=== PATIENT | female | born 1975 | race Caucasian/White ===

== ENCOUNTER 2018-03-21 23:48 | Observation (INO) | payer BC ==
[2018-03-22] MEDS ORDERED: KETOROLAC 60 MG/2 ML VIAL IM STA (00:42)
[2018-03-22] MEDS ORDERED: ONDANSETRON ODT 4 MG TAB PO STA (00:42)
[2018-03-22] MEDS ORDERED: MORPHINE SULFATE 4 MG/ML SYRINGE IM STA (00:42)
--- NOTE | 2018-03-22 00:46 | ED ---
General Adult HPI - General Chief complaint: Extremity Injury, Lower Stated complaint: leg pain Time Seen by Provider: 03/22/18 00:25 Source: patient, RN notes reviewed Mode of arrival: wheelchair Limitations: no limitations - History of Present Illness Initial comments: This is a 43-year-old female presents emergency Department complaining of left knee pain. Patient states started hurting on Thursday it became swollen on Thursday she went to the emergency department in [place]. Patient states they did x-rays and said she has an effusion and she is to follow-up with [facility] tomorrow morning. Patient states the pain got worse so she decided come back to emergency department. Patient states she cannot take any [place] because of his hydrocodone. Patient states she only takes Motrin and Tylenol but is not touching it. - Related Data Home Medications Medication Instructions Recorded Confirmed Multivitamins, Thera [Theragran] 1 tab PO DAILY 09/28/15 09/03/17 Vitamin C/Biotin [Hair, Skin and 1 tab PO DAILY 09/03/17 09/03/17 Nails] Previous Rx's Medication Instructions Recorded Acetaminophen-Codeine 300-30mg 1 tab PO Q6H PRN #15 tablet 09/04/17 [Tylenol #3] Allergies Allergy/AdvReac Type Severity Reaction Status Date / Time hydrocodone bitartrate AdvReac Nausea & Verified 03/22/18 00:30 [From Lortab] Vomiting Review of Systems ROS Statement: Those systems with pertinent positive or pertinent negative responses have been documented in the HPI. ROS Other: All systems not noted in ROS Statement are negative. Past Medical History Past Medical History: Hearing Disorder / Deafness, Hypertension Additional Past Medical History / Comment(s): wears hearing aide. History of Any Multi-Drug Resistant Organisms: None Reported Past Surgical History: Appendectomy, Bariatric Surgery, Cholecystectomy, Orthopedic Surgery Additional Past Surgical History / Comment(s): LAP BAND removed now RYGB on 08/2015, D&C Past Anesthesia/Blood Transfusion Reactions: No Reported Reaction Past Psychological History: No Psychological Hx Reported Smoking Status: Former smoker Past Alcohol Use History: None Reported Past Drug Use History: None Reported - Past Family History Mother Family Medical History: Diabetes Mellitus Additional Family Medical History / Comment(s): . General Exam - General Exam Comments Initial Comments: GENERAL Patient is well-developed and well-nourished. Patient is in mild distress. EYES Patient's pupils are equal and round. Extraocular motion is intact SKIN Unremarkable NEURO The patient is alert and oriented 3 PYSCH Patient has normal interpersonal interactions. MUSCULOSKELETAL Patient's knee has a super patellar effusion. Patient has no ligament laxity. Patient does have 75% range of motion with that knee before she starts having pain. Limitations: no limitations Course Vital Signs 03/22/18 03/22/18 00:28 03:26 Temperature 98.2 F Pulse Rate 87 91 Respiratory 18 16 Rate Blood Pressure 183/87 191/103 O2 Sat by Pulse 98 98 Oximetry Medical Decision Making - Medical Decision Making After the patient received morphine she stated her knee pain was much improved but she started getting hot and having some tightness across her chest. It did not subside so we did a cardiac workup. Patient's EKG showed normal sinus rhythm at 90 bpm VA interval is 134 QRS is 90 QT interval 360 QTC is 440. Patient's EKG shows no ST segment elevation or depression. Patient's chest x-ray shows no acute abnormality. Patient's hemoglobin came back low I repeated it and it was still low she states she's had no black or bloody stools patient denies any heavy vaginal bleeding. Patient denies a history of anemia but states she does have a gastric bypass. Patient states chest pains, knee pain is gone. I spoke with Dr. Rodriguez he agreed to admit the patient admitted the patient consult cardiology - Lab Data Result diagrams: 03/22/18 04:15 03/22/18 02:20 Lab Results 03/22/18 03/22/18 03/22/18 Range/Units 02:20 02:20 03:20 WBC 4.6 (3.8-10.6) k/uL RBC 4.29 (3.80-5.40) m/uL Hgb 7.8 L (11.4-16.0) gm/dL Hct 26.8 L (34.0-46.0) % MCV 62.6 L (80.0-100.0) fL MCH 18.1 L (25.0-35.0) pg MCHC 29.0 L (31.0-37.0) g/dL RDW 17.5 H (11.5-15.5) % Plt Count 187 (150-450) k/uL Neutrophils % 64 % Lymphocytes % 28 % Monocytes % 5 % Eosinophils % 2 % Basophils % 0 % Neutrophils # 2.9 (1.3-7.7) k/uL Lymphocytes # 1.3 (1.0-4.8) k/uL Monocytes # 0.2 (0-1.0) k/uL Eosinophils # 0.1 (0-0.7) k/uL Basophils # 0.0 (0-0.2) k/uL Hypochromasia Marked Poikilocytosis Slight Anisocytosis Slight Microcytosis Marked PT (9.0-12.0) sec INR (<1.2) APTT (22.0-30.0) sec Sodium 138 (137-145) mmol/L Potassium 4.3 (3.5-5.1) mmol/L Chloride 104 (98-107) mmol/L Carbon Dioxide 23 (22-30) mmol/L Anion Gap 11 mmol/L BUN 9 (7-17) mg/dL Creatinine 0.40 L (0.52-1.04) mg/dL Est GFR (CKD-EPI)AfAm >90 (>60 ml/min/1.73 sqM) Est GFR (CKD-EPI)NonAf >90 (>60 ml/min/1.73 sqM) Glucose 130 H (74-99) mg/dL Calcium 8.6 (8.4-10.2) mg/dL Magnesium 2.2 (1.6-2.3) mg/dL Total Bilirubin 0.3 (0.2-1.3) mg/dL AST 109 H (14-36) U/L ALT 46 (9-52) U/L Alkaline Phosphatase 114 (38-126) U/L Total Creatine Kinase 59 (30-135) U/L CK-MB (CK-2) 0.7 (0.0-2.4) ng/mL CK-MB (CK-2) Rel Index 1.2 Troponin I <0.012 (0.000-0.034) ng/mL Total Protein 6.3 (6.3-8.2) g/dL Albumin 3.4 L (3.5-5.0) g/dL 03/22/18 03/22/18 Range/Units 03:20 04:15 WBC 4.0 (3.8-10.6) k/uL RBC 3.77 L (3.80-5.40) m/uL Hgb 7.0 L* (11.4-16.0) gm/dL Hct 23.7 L (34.0-46.0) % MCV 62.9 L (80.0-100.0) fL MCH 18.6 L (25.0-35.0) pg MCHC 29.5 L (31.0-37.0) g/dL RDW 17.5 H (11.5-15.5) % Plt Count 164 (150-450) k/uL Neutrophils % % Lymphocytes % % Monocytes % % Eosinophils % % Basophils % % Neutrophils # (1.3-7.7) k/uL Lymphocytes # (1.0-4.8) k/uL Monocytes # (0-1.0) k/uL Eosinophils # (0-0.7) k/uL Basophils # (0-0.2) k/uL Hypochromasia Marked Poikilocytosis Slight Anisocytosis Slight Microcytosis Marked PT 9.5 (9.0-12.0) sec INR 1.0 (<1.2) APTT 21.5 L (22.0-30.0) sec Sodium (137-145) mmol/L Potassium (3.5-5.1) mmol/L Chloride (98-107) mmol/L Carbon Dioxide (22-30) mmol/L Anion Gap mmol/L BUN (7-17) mg/dL Creatinine (0.52-1.04) mg/dL Est GFR (CKD-EPI)AfAm (>60 ml/min/1.73 sqM) Est GFR (CKD-EPI)NonAf (>60 ml/min/1.73 sqM) Glucose (74-99) mg/dL Calcium (8.4-10.2) mg/dL Magnesium (1.6-2.3) mg/dL Total Bilirubin (0.2-1.3) mg/dL AST (14-36) U/L ALT (9-52) U/L Alkaline Phosphatase (38-126) U/L Total Creatine Kinase (30-135) U/L CK-MB (CK-2) (0.0-2.4) ng/mL CK-MB (CK-2) Rel Index Troponin I (0.000-0.034) ng/mL Total Protein (6.3-8.2) g/dL Albumin (3.5-5.0) g/dL Disposition Clinical Impression: Knee effusion, left Disposition: HOME SELF-CARE Condition: Good Instructions: Knee Sprain (ED) Is patient prescribed a controlled substance at d/c from ED?: No Referrals: Che Oliva DO [Primary Care Provider] - 1-2 days Time of Disposition: 00:45
[2018-03-22] MEDS ORDERED: NITROGLYCERIN SL TABS 0.4 MG TAB SUBLINGUAL STA (02:07)
[2018-03-22] MEDS ORDERED: ASPIRIN 81 MG PO STA (02:07)
[2018-03-22] MEDS ORDERED: NITROGLYCERIN OINT 1 INCH/GM PACKET TOPICAL STA (02:07)
[2018-03-22] MEDS ORDERED: LORazepam 2 MG/ML INJ IV STA (02:08)
--- NOTE | 2018-03-22 02:58 | XR ---
EXAMINATION TYPE: XR chest 2V DATE OF EXAM: 03/22/2018 COMPARISON: NONE HISTORY: Chest pain TECHNIQUE: Frontal and lateral views of the chest are obtained. FINDINGS: Heart and mediastinum are normal. Lungs are clear of infiltrate. There is no pleural effus ion. There are chest leads. Bony thorax is intact. IMPRESSION: Normal chest
[2018-03-22 03:09] LABS: ALT 46 U/L (9-52); AST 109 U/L (14-36); Albumin 3.4 g/dL (3.5-5.0); Alkaline Phosphatase 114 U/L (38-126); Anion Gap 11 mmol/L; Blood Urea Nitrogen 9 mg/dL (7-17); Calcium 8.6 mg/dL (8.4-10.2); Carbon Dioxide 23 mmol/L (22-30); Chloride 104 mmol/L (98-107); Glucose 130 mg/dL (74-99); Magnesium 2.2 mg/dL (1.6-2.3); Potassium 4.3 mmol/L (3.5-5.1); Sodium 138 mmol/L (137-145); Total Bilirubin 0.3 mg/dL (0.2-1.3); Total Protein 6.3 g/dL (6.3-8.2)
[2018-03-22 03:24] LABS: Creatine Kinase 59 U/L (30-135)
[2018-03-22 03:37] LABS: Creatine Kinase MB 0.7 ng/mL (0.0-2.4); Troponin I <0.012 ng/mL (0.000-0.034)
[2018-03-22 03:40] LABS: Anisocytosis Slight; Basophils % (A) 0 %; Eosinophils # (A) 0.1 k/uL (0-0.7); Eosinophils % (A) 2 %; HCT 26.8 % (34.0-46.0); HGB 7.8 gm/dL (11.4-16.0); Hypochromasia Marked; Lymphocytes # (A) 1.3 k/uL (1.0-4.8); Lymphocytes % (A) 28 %; MCH 18.1 pg (25.0-35.0); MCV 62.6 fL (80.0-100.0); Mean Platelet Volume 7.4; Microcytosis Marked; Monocytes # (A) 0.2 k/uL (0-1.0); Monocytes % (A) 5 %; Neutrophils # (A) 2.9 k/uL (1.3-7.7); Neutrophils % (A) 64 %; Platelet Count 187 k/uL (150-450); Poikilocytosis Slight; RBC 4.29 m/uL (3.80-5.40); RDW 17.5 % (11.5-15.5); WBC 4.6 k/uL (3.8-10.6)
[2018-03-22] MEDS ORDERED: hydrALAZINE HCL 20 MG/ML 1 ML VIAL IVP STA (03:50)
[2018-03-22 03:51] LABS: Prothrombin Time 9.5 sec (9.0-12.0)
[2018-03-22 03:53] LABS: Partial Thromboplastin Time 21.5 sec (22.0-30.0)
[2018-03-22 04:43] LABS: Anisocytosis Slight; HCT 23.7 % (34.0-46.0); Hypochromasia Marked; MCH 18.6 pg (25.0-35.0); MCHC 29.5 g/dL (31.0-37.0); MCV 62.9 fL (80.0-100.0); Microcytosis Marked; Platelet Count 164 k/uL (150-450); Poikilocytosis Slight; RBC 3.77 m/uL (3.80-5.40); RDW 17.5 % (11.5-15.5)
[2018-03-22] MEDS ORDERED: NITROGLYCERIN SL TABS 0.4 MG TAB SUBLINGUAL PRN (04:57)
[2018-03-22 06:09] VITALS: BMI 40.3
[2018-03-22] MEDS: ONDANSETRON 4 MG/2 ML VIAL IVP PRN ×2 (06:16→11:08)
[2018-03-22] MEDS ORDERED: NITROGLYCERIN OINT 1 INCH/GM PACKET TOPICAL SCH (07:00)
--- NOTE | 2018-03-22 10:43 | P.CRDCN ---
History of Present Illness History of present illness: Mrs. Decker is a [facility] 43-year-old female past medical history significant for hypertension, hearing loss and lap band surgery. She states she doesn't take anything for blood pressure since surgery. She denies history of coronary artery disease, diabetes mellitus or dyslipidemia. She has never seen a dye range tender for any reason. We have been asked to see her in consultation for chest pain. She presented to the hospital last night with complaints of pain in the left knee. She had recently been to a hospital in [facility] and was told she had an effusion and is scheduled to follow up with Ortho this week. However, the pain in the knee was too unbearable to tolerate last night. She was given 8mg morphine, zofran 4 mg and toradol 60 mg. After receiving these medications she developed shortness of breath, dizziness and chest tightness. EKG obtained at that time revealed sinus mechanism with no acute ST or T-wave abnormalities. Cardiac enzymes were obtained and negative x1. She has had no further symptoms of chest pain since. She is very lethargic and difficult to arouse this morning, she was given ativan 1mg IV around 0315. She denies symptoms of chest pain, shortness of breath, nausea, vomiting, diaphoresis at the time of my exam. Hgb on admission was 7.8 with repeat 7.0. She denies any active bleeding, denies vaginal bleeding, denies black or bloody stools. Chest xray negative for an acute cardiopulmonary process. Laboratory data reviewed, hemoglobin 7.0, platelets 164, sodium 138, potassium 4.3, magnesium 2.2, cardiac enzymes negative 2. Review of Systems At the time of my exam: CONSTITUTIONAL: Denies fever. Denies chills. EYES: Denies blurred vision. Denies vision changes. Denies eye pain. EARS, NOSE, MOUTH & THROAT: Denies headache. Denies sore throat. Denies ear pain. CARDIOVASCULAR: Denies chest pain. Denies shortness of breath. Denies orthopnea. Denies PND. Denies palpitations. RESPIRATORY: Denies cough. GASTROINTESTINAL: Denies abdominal pain. Denies diarrhea. Denies constipation. Denies nausea. Denies vomiting. MUSCULOSKELETAL: Complains of left knee pain. INTEGUMENTARY: Denies pruitis. Denies rash. NEUROLOGIC: Denies numbness. Denies tingling. Denies weakness. PSYCHIATRIC: Denies anxiety. Denies depression. ENDOCRINE: Denies fatigue. Denies weight change. Denies polydipsia. Denies polyurina. GENITOURINARY: Denies burning, hematuria or urgency with micturation. HEMATOLOGIC: Denies history of anemia. Denies bleeding. Past Medical History Past Medical History: Hearing Disorder / Deafness, Hypertension Additional Past Medical History / Comment(s): wears hearing aide. History of Any Multi-Drug Resistant Organisms: None Reported Past Surgical History: Appendectomy, Bariatric Surgery, Cholecystectomy, Orthopedic Surgery Additional Past Surgical History / Comment(s): LAP BAND removed now RYGB on 08/2015, D&C, knee scaling Past Anesthesia/Blood Transfusion Reactions: No Reported Reaction Smoking Status: Former smoker - Past Family History Mother Family Medical History: Diabetes Mellitus Additional Family Medical History / Comment(s): . Father Family Medical History: Diabetes Mellitus Additional Family Medical History / Comment(s): heart issues Medications and Allergies Home Medications Medication Instructions Recorded Confirmed Type Multivitamins, Thera [Theragran] 1 tab PO DAILY 09/28/15 03/22/18 History Vitamin C/Biotin [Hair, Skin and 1 tab PO DAILY 09/03/17 03/22/18 History Nails] Allergies Allergy/AdvReac Type Severity Reaction Status Date / Time hydrocodone bitartrate AdvReac Nausea & Verified 03/22/18 09:25 [From Lortab] Vomiting morphine AdvReac Chest Pain Verified 03/22/18 09:25 Physical Exam Vitals: Vital Signs Temp Pulse Pulse Resp BP BP Pulse Ox 03/22/18 08:00 16 03/22/18 06:21 16 03/22/18 06:03 97.9 F 90 15 153/89 98 03/22/18 05:13 97.5 F L 90 18 151/87 99 03/22/18 04:57 88 16 151/87 100 03/22/18 03:26 91 16 191/103 98 03/22/18 00:28 98.2 F 87 18 183/87 98 Intake and Output 03/21/18 03/22/18 03/22/18 22:59 06:59 14:59 Other: # Voids 1 Weight 113.4 kg Blood pressure 153/89 heart rate 98 afebrile maintaining oxygen saturation on room air GENERAL: This is a 43-year-old female in no apparent distress at the time of my examination. Morbidly obese. HEENT: Head is atraumatic, normocephalic. Pupils are equal, round. Sclerae anicteric. Conjunctivae are clear. Mucous membranes of the mouth are moist. Neck is supple. There is no jugular venous distention. No carotid bruit is heard. LUNGS: Clear to auscultation no wheezes, rales or rhonchi. No chest wall tenderness is noted on palpation or with deep breathing. HEART: Regular rate and rhythm without murmurs, rubs or gallops. S1 and S2 heard. ABDOMEN: Soft, nontender. Bowel sounds are heard. No organomegaly noted. EXTREMITIES: No evidence of peripheral edema and no calf tenderness noted. VASCULAR: Radial and dorsalis pedis pulses palpated, no evidence of clubbing. NEUROLOGIC: Patient is awake, alert and oriented x3. Results 03/22/18 04:15 03/22/18 02:20 Cardiac Enzymes 03/22/18 03/22/18 03/22/18 Range/Units 02:20 02:20 08:39 AST 109 H (14-36) U/L CK-MB (CK-2) 0.7 (0.0-2.4) ng/mL Troponin I <0.012 <0.012 (0.000-0.034) ng/mL Coagulation 03/22/18 Range/Units 03:20 PT 9.5 (9.0-12.0) sec APTT 21.5 L (22.0-30.0) sec CBC 03/22/18 03/22/18 Range/Units 03:20 04:15 WBC 4.6 4.0 (3.8-10.6) k/uL RBC 4.29 3.77 L (3.80-5.40) m/uL Hgb 7.8 L 7.0 L* (11.4-16.0) gm/dL Hct 26.8 L 23.7 L (34.0-46.0) % Plt Count 187 164 (150-450) k/uL Comprehensive Metabolic Panel 03/22/18 Range/Units 02:20 Sodium 138 (137-145) mmol/L Potassium 4.3 (3.5-5.1) mmol/L Chloride 104 (98-107) mmol/L Carbon Dioxide 23 (22-30) mmol/L BUN 9 (7-17) mg/dL Creatinine 0.40 L (0.52-1.04) mg/dL Glucose 130 H (74-99) mg/dL Calcium 8.6 (8.4-10.2) mg/dL AST 109 H (14-36) U/L ALT 46 (9-52) U/L Alkaline Phosphatase 114 (38-126) U/L Total Protein 6.3 (6.3-8.2) g/dL Albumin 3.4 L (3.5-5.0) g/dL Current Medications Generic Name Dose Route Start Last Admin Trade Name Freq PRN Reason Stop Dose Admin Nitroglycerin 0.4 mg 03/22/18 04:57 Nitrostat SUBLINGUAL Q5M PRN Chest Pain Ondansetron HCl 4 mg 03/22/18 06:13 03/22/18 06:16 Zofran IVP 4 mg Q6HR PRN Administration Nausea And Vomiting Intake and Output 03/21/18 03/22/18 03/22/18 22:59 06:59 14:59 Other: # Voids 1 Weight 113.4 kg 03/22/18 04:15 03/22/18 02:20 Assessment and Plan Assessment: ASSESSMENT 1. Chest pain, atypical. An acute coronary event has been ruled out. Chest pain most likely secondary to anemia. 2. Anemia, unknown etiology. Pt denies history of anemia and denies any bleeding. 3. Left knee pain 4. History of hypertension, not currently on medical therapy. 5. Morbid obesity PLAN An acute coronary event has been rule out with no EKG evidence of ischemia and negative cardiac enzymes. Chest pain probably secondary to anemia with an oxygen supply mismatch. Further evaluation per medical of etiology of anemia. Follow up with Dr. Biggs in 2-3 weeks for outpatient stress testing. Thank you kindly for this consultation. Nurse Practitioner note has been reviewed, I agree with a documented findings and plan of care. Patient was seen and examined.
[2018-03-22 10:53] LABS: Cholesterol 140 mg/dL (<200); HDL Cholesterol 67 mg/dL (40-60); LDL Cholesterol,Calculated 65 mg/dL (0-99); Triglycerides 41 mg/dL (<150)
[2018-03-22 10:58] LABS: Anisocytosis Slight; Basophils % (A) 0 %; Eosinophils % (A) 0 %; HCT 29.1 % (34.0-46.0); HGB 8.2 gm/dL (11.4-16.0); Hypochromasia Marked; Lymphocytes # (A) 0.7 k/uL (1.0-4.8); Lymphocytes % (A) 20 %; MCH 18.3 pg (25.0-35.0); MCV 65.6 fL (80.0-100.0); Mean Platelet Volume 7.8; Microcytosis Marked; Monocytes # (A) 0.2 k/uL (0-1.0); Monocytes % (A) 5 %; Neutrophils # (A) 2.8 k/uL (1.3-7.7); Neutrophils % (A) 74 %; Platelet Count 186 k/uL (150-450); Poikilocytosis Slight; RBC 4.45 m/uL (3.80-5.40); RDW 17.6 % (11.5-15.5); WBC 3.7 k/uL (3.8-10.6)
--- NOTE | 2018-03-22 14:32 | P.CNOR ---
History of Present Illness - [facility] Consult date: 03/22/18 Consult reason: joint pain (Left Knee) History of present illness: Patient is a [place] 43-year-old female seen at bedside this afternoon in consultation for left knee pain. She was admitted through the emergency department early this a.m. for increased left knee pain. She states she developed left knee pain this past 03/19/2018 when she woke in the morning. She denies an accident or trauma to the left knee. She does not recall any injury to the knee. She denies having any instability, hearing a click or pop. She states she was of value by emergency department and [place] on 03/20/2018 where she was placed in a knee immobilizer and had x- rays performed. She has no history of gout. She has pain with ambulation at the left knee as well as bending the knee. The pain she describes is in the area of the anterior superior patella. She has no calf pain, fever, chills, chest pain or shortness breath currently. Review of Systems All systems: negative Constitutional: Denies chills, Denies fever Eyes: denies blurred vision, denies pain Ears, nose, mouth and throat: Denies headache, Denies sore throat Cardiovascular: Denies chest pain, Denies shortness of breath Respiratory: Denies cough Gastrointestinal: Denies abdominal pain, Denies diarrhea, Denies nausea, Denies vomiting Genitourinary: Denies dysuria, Denies hematuria Musculoskeletal: Denies myalgias Integumentary: Denies pruritus, Denies rash Neurological: Denies numbness, Denies weakness Psychiatric: Denies anxiety, Denies depression Endocrine: Denies fatigue, Denies weight change Past Medical History Past Medical History: Hearing Disorder / Deafness, Hypertension Additional Past Medical History / Comment(s): wears hearing aide. History of Any Multi-Drug Resistant Organisms: None Reported Past Surgical History: Appendectomy, Bariatric Surgery, Cholecystectomy, Orthopedic Surgery Additional Past Surgical History / Comment(s): LAP BAND removed now RYGB on 08/2015, D&C, knee scaling Past Anesthesia/Blood Transfusion Reactions: No Reported Reaction Smoking Status: Former smoker - Past Family History Mother Family Medical History: Diabetes Mellitus Additional Family Medical History / Comment(s): . Father Family Medical History: Diabetes Mellitus Additional Family Medical History / Comment(s): heart issues Medications and Allergies Home Medications Medication Instructions Recorded Confirmed Type Multivitamins, Thera [Theragran] 1 tab PO DAILY 09/28/15 03/22/18 History Vitamin C/Biotin [Hair, Skin and 1 tab PO DAILY 09/03/17 03/22/18 History Nails] Allergies Allergy/AdvReac Type Severity Reaction Status Date / Time hydrocodone bitartrate AdvReac Nausea & Verified 03/22/18 09:25 [From Lortab] Vomiting morphine AdvReac Chest Pain Verified 03/22/18 09:25 Physical Examination Inspection of the left knee shows no erythema or ecchymoses. There is mild swelling at the area of the suprapatellar bursa. She is mildly tender at the area of the suprapatellar bursa. It is not hot to touch. There is no bony deformity. There is no joint effusion. Patellar tracking is normal. She has negative patellar apprehension. She has pain with forced flexion to 90. Carol is negative. MCL and LCL are intact. Calf is soft and nontender. 2+ dorsalis pedis pulse and less than 2 second capillary refill is present. Results - Labs Labs: Abnormal Lab Results - Last 24 Hours (Table) 03/22/18 03/22/18 03/22/18 Range/Units 02:20 03:20 03:20 WBC (3.8-10.6) k/uL RBC (3.80-5.40) m/uL Hgb 7.8 L (11.4-16.0) gm/dL Hct 26.8 L (34.0-46.0) % MCV 62.6 L (80.0-100.0) fL MCH 18.1 L (25.0-35.0) pg MCHC 29.0 L (31.0-37.0) g/dL RDW 17.5 H (11.5-15.5) % Lymphocytes # (1.0-4.8) k/uL APTT 21.5 L (22.0-30.0) sec Creatinine 0.40 L (0.52-1.04) mg/dL Glucose 130 H (74-99) mg/dL AST 109 H (14-36) U/L Albumin 3.4 L (3.5-5.0) g/dL HDL Cholesterol (40-60) mg/dL 03/22/18 03/22/18 03/22/18 Range/Units 04:15 08:39 08:39 WBC 3.7 L (3.8-10.6) k/uL RBC 3.77 L (3.80-5.40) m/uL Hgb 7.0 L* 8.2 L (11.4-16.0) gm/dL Hct 23.7 L 29.1 L (34.0-46.0) % MCV 62.9 L 65.6 L (80.0-100.0) fL MCH 18.6 L 18.3 L (25.0-35.0) pg MCHC 29.5 L 28.0 L (31.0-37.0) g/dL RDW 17.5 H 17.6 H (11.5-15.5) % Lymphocytes # 0.7 L (1.0-4.8) k/uL APTT (22.0-30.0) sec Creatinine (0.52-1.04) mg/dL Glucose (74-99) mg/dL AST (14-36) U/L Albumin (3.5-5.0) g/dL HDL Cholesterol 67 H (40-60) mg/dL H & H 03/22/18 03/22/18 03/22/18 Range/Units 03:20 04:15 08:39 Hgb 7.8 L 7.0 L* 8.2 L (11.4-16.0) gm/dL Hct 26.8 L 23.7 L 29.1 L (34.0-46.0) % Coagulation 03/22/18 Range/Units 03:20 INR 1.0 (<1.2) Result Diagrams: 03/22/18 08:39 03/22/18 02:20 Assessment and Plan (1) Left knee pain Narrative/Plan: I've requested her outside x-rays be uploaded system for review. Suspect that this is aseptic suprapatellar bursitis which has improved. I recommended applying her knee immobilizer and maintaining. Also recommended applying ice pack 10-15 minutes 2-3 times a day. Continue with pain management and elevation. Pain management, DVT prophylaxis and medical management per primary team. We'll review her x-rays once uploaded and if negative she may follow-up as an outpatient for further evaluation and recommendations including MRI if necessary. Current Visit: Yes Status: Acute Code(s): M25.562 - PAIN IN LEFT KNEE SNOMED Code(s): 19110215 Time with Patient: Less than 30
--- NOTE | 2018-03-22 14:56 | P.HPIM ---
History of Present Illness H&P Date: 03/22/18 Chief Complaint: Left knee pain Mrs. Decker is a 43-year-old female with a past medical history of hearing disorder, hypertension coming into the emergency Department with a chief complaint of left knee pain. Patient went to emergency department in [place] on Thursday with a left knee pain and had x-rays done there showing an effusion and was discharged home to have follow-up. Eventually the patient's pain did not improve and so she came into our ED. In the ED the patient received 8 mg of morphine along with 60 mg of Toradol October which the patient had flushing and along with that she was complaining of some chest tightness. So the patient is admitted to the office unit for evaluation of the chest discomfort. Patient had an EKG showing no acute ST or T -wave changes. Patient does not have a cardiac history. In the office unit as per the nursing staff report the patient was difficult to continue conversation with, as she was feeling very drowsy. When I saw her around 1 PM patient was awake was complaining of some nausea and she did throw up couple of times. Patient denies having any abdominal pain but was nauseous only. She denies having any diarrhea or constipation. On reviewing her labs patient's troponins have been negative so far and the rest of the lab with normal limits except for hemoglobin which is at 7. The repeat blood work from this morning showed a hemoglobin of 8.2. Patient does have a history of Wendy-en-Y procedure done in the past and her MCV is low which indicates probable iron deficiency anemia. Review of Systems REVIEW OF SYSTEMS: PSYCH: No anxiety or depression NEURO:No c/o weakness of the extremties, No facial droop, No speech abnormalities. VASCULAR: Peripheral nervous system within the normal limits no edema HEMATOLOGIC: No history of easy bleeding and bruising . No recent infections . RESPIRATORY: No cough, No SOB, No chest discomfort. IMMUNE: No infections INTEGUMENT: no rashes OPHTHALMOLOGIC: No blurry vision and no eye discharge : No dysuria or hematuria [employer]PERATOR: No bleeding PV CARDIAC: No chest pain , shortness of breath , paroxysmal nocturnal dyspnea now MUSCULOSKELETAL : No Aches or pains in the joints or muscles. GI: Experiencing nausea and vomiting Past Medical History Past Medical History: Hearing Disorder / Deafness, Hypertension Additional Past Medical History / Comment(s): wears hearing aide. History of Any Multi-Drug Resistant Organisms: None Reported Past Surgical History: Appendectomy, Bariatric Surgery, Cholecystectomy, Orthopedic Surgery Additional Past Surgical History / Comment(s): LAP BAND removed now RYGB on 08/2015, D&C, knee scaling Past Anesthesia/Blood Transfusion Reactions: No Reported Reaction Smoking Status: Former smoker - Past Family History Mother Family Medical History: Diabetes Mellitus Additional Family Medical History / Comment(s): . Father Family Medical History: Diabetes Mellitus Additional Family Medical History / Comment(s): heart issues Medications and Allergies Home Medications Medication Instructions Recorded Confirmed Type Multivitamins, Thera [Theragran] 1 tab PO DAILY 09/28/15 03/22/18 History Vitamin C/Biotin [Hair, Skin and 1 tab PO DAILY 09/03/17 03/22/18 History Nails] Allergies Allergy/AdvReac Type Severity Reaction Status Date / Time hydrocodone bitartrate AdvReac Nausea & Verified 03/22/18 09:25 [From Lortab] Vomiting morphine AdvReac Chest Pain Verified 03/22/18 09:25 Physical Exam Vitals: Vital Signs Temp Pulse Pulse Resp BP BP Pulse Ox 03/22/18 12:00 91 16 03/22/18 11:42 98 F 91 16 134/70 97 03/22/18 08:00 16 03/22/18 06:21 16 03/22/18 06:03 97.9 F 90 15 153/89 98 03/22/18 05:13 97.5 F L 90 18 151/87 99 03/22/18 04:57 88 16 151/87 100 03/22/18 03:26 91 16 191/103 98 03/22/18 00:28 98.2 F 87 18 183/87 98 Intake and Output 03/21/18 03/22/18 03/22/18 22:59 06:59 14:59 Other: # Voids 1 Weight 113.4 kg GENERAL EXAM GEN. APPEARANCE: alert, in no apparent distress ,obese, HEAD EXAM: atraumatic, normocephalic, normal inspection EYE EXAM: normal appearance, PERRL, EOMI. Absent: scleral icterus, conjunctival injection, periorbital swelling ENT EXAM: normal exam, mucous membranes moist NECK EXAM: normal inspection. Absent: tenderness, meningismus, full ROM, lymphadenopathy RESPIRATORY EXAM: normal lung sounds bilaterally. Absent: respiratory distress , wheezes, rales, rhonchi, stridor CARDIOVASCULAR EXAM: regular rate, normal rhythm, normal heart sounds. Absent : systolic murmur, diastolic murmur, rubs, gallop, clicks GI/ABDOMINAL EXAM: soft, normal bowel sounds. Absent: distended, tenderness, guarding, rebound, rigid EXTREMITIES EXAM: normal inspection, full ROM, normal capillary refill. Absent : tenderness, pedal edema, joint swelling, calf tenderness NEUROLOGICAL EXAM: alert, oriented X3, no focal deficits PSYCHIATRIC EXAM: normal affect, normal mood SKIN EXAM: warm, dry, intact, normal color. Absent: rash Results CBC & Chem 7: 03/22/18 08:39 03/22/18 02:20 Labs: Abnormal Lab Results - Last 24 Hours (Table) 03/22/18 03/22/18 03/22/18 Range/Units 02:20 03:20 03:20 WBC (3.8-10.6) k/uL RBC (3.80-5.40) m/uL Hgb 7.8 L (11.4-16.0) gm/dL Hct 26.8 L (34.0-46.0) % MCV 62.6 L (80.0-100.0) fL MCH 18.1 L (25.0-35.0) pg MCHC 29.0 L (31.0-37.0) g/dL RDW 17.5 H (11.5-15.5) % Lymphocytes # (1.0-4.8) k/uL APTT 21.5 L (22.0-30.0) sec Creatinine 0.40 L (0.52-1.04) mg/dL Glucose 130 H (74-99) mg/dL AST 109 H (14-36) U/L Albumin 3.4 L (3.5-5.0) g/dL HDL Cholesterol (40-60) mg/dL 03/22/18 03/22/18 03/22/18 Range/Units 04:15 08:39 08:39 WBC 3.7 L (3.8-10.6) k/uL RBC 3.77 L (3.80-5.40) m/uL Hgb 7.0 L* 8.2 L (11.4-16.0) gm/dL Hct 23.7 L 29.1 L (34.0-46.0) % MCV 62.9 L 65.6 L (80.0-100.0) fL MCH 18.6 L 18.3 L (25.0-35.0) pg MCHC 29.5 L 28.0 L (31.0-37.0) g/dL RDW 17.5 H 17.6 H (11.5-15.5) % Lymphocytes # 0.7 L (1.0-4.8) k/uL APTT (22.0-30.0) sec Creatinine (0.52-1.04) mg/dL Glucose (74-99) mg/dL AST (14-36) U/L Albumin (3.5-5.0) g/dL HDL Cholesterol 67 H (40-60) mg/dL Thrombosis Risk Factor Assmnt - Choose All That Apply Each Factor Represents 1 point: Age 41-60 years Thrombosis Risk Factor Assessment Total Risk Factor Score: 1 Thrombosis Risk Factor Assessment Level: Low Risk Assessment and Plan Assessment: Atypical chest pain Anemia- most likely iron deficiency as she had a Wendy-en-Y gastric bypass surgery done Left knee pain h/o Hypertension Morbid obesity with BMI of 40.4 Hearing disorder Plan: Patient had been admitted to rule out acute coronary syndrome. The patient's drowsiness. 3 pressure high dose of morphine that she was given. Her mentation is getting back to normal. We will check iron profile for her anemia. Cardiology evaluated the patient and advised outpatient stress testing. Further recommendations to follow depending on the progress of the patient.
[2018-03-22] MEDS: methylPREDNISolone 4 MG TAB TAPER PO SCH (15:14)
[2018-03-23 07:22] LABS: Anisocytosis Slight; Basophils % (A) 0 %; Eosinophils % (A) 0 %; HCT 26.6 % (34.0-46.0); HGB 7.6 gm/dL (11.4-16.0); Hypochromasia Marked; Lymphocytes # (A) 1.2 k/uL (1.0-4.8); Lymphocytes % (A) 21 %; MCH 18.3 pg (25.0-35.0); MCHC 28.6 g/dL (31.0-37.0); Mean Platelet Volume 7.6; Microcytosis Marked; Monocytes # (A) 0.2 k/uL (0-1.0); Monocytes % (A) 4 %; Neutrophils # (A) 4.3 k/uL (1.3-7.7); Neutrophils % (A) 74 %; Platelet Count 210 k/uL (150-450); Poikilocytosis Slight; RBC 4.17 m/uL (3.80-5.40); RDW 17.5 % (11.5-15.5); WBC 5.8 k/uL (3.8-10.6)
[2018-03-23 07:52] LABS: Anion Gap 9 mmol/L; Blood Urea Nitrogen 11 mg/dL (7-17); Calcium 9.3 mg/dL (8.4-10.2); Carbon Dioxide 28 mmol/L (22-30); Chloride 103 mmol/L (98-107); Glucose 101 mg/dL (74-99); Potassium 4.4 mmol/L (3.5-5.1); Sodium 140 mmol/L (137-145)
[2018-03-23 07:57] VITALS: RESP 18
[2018-03-23] MEDS: methylPREDNISolone 4 MG TAB TAPER PO SCH (08:10)
[2018-03-23] MEDS ORDERED: ASPIRIN 325 MG TAB PO SCH (09:00)
--- NOTE | 2018-03-23 09:33 | P.PN ---
Subjective Mrs. Decker is seen and examined today resting comfortably in bed. She was kept last night for serial hgb. The numbers have been stable but still low, 8.2 and 7.6 this morning. She denies any further symptoms of chest pain, shortness of breath or nausea. She is much more awake today and states she doesn't do well with pain medication and thinks she was lethargic yesterday secondary to that. Blood pressure 156/78 hert rate 97. Cardiac enzymes negative x3, LDL 65, HDL 67 , triglycerides 41, total cholesterol 140. Objective - Vital Signs Vital signs: Vital Signs Temp 98.4 F 03/23/18 07:20 Pulse 97 03/23/18 08:00 Resp 18 03/23/18 08:00 BP 156/78 03/23/18 07:20 Pulse Ox 93 L 03/23/18 07:20 Intake & Output 03/22/18 03/23/18 03/23/18 18:59 06:59 18:59 Intake Total 860 Balance 860 Intake: Oral 860 Other: Voiding Method Toilet # Voids 2 1 - Exam GENERAL: Well-appearing, well-nourished and in no acute distress. Obese. NECK: Supple without JVD or thyromegaly. LUNGS: Breath sounds clear to auscultation bilaterally. Respiration equal and unlabored. No wheezes, rales or rhonchi. HEART: Regular rate and rhythm without murmurs, rubs or gallops. S1 and S2 heard. EXTREMITIES: Normal range of motion, left knee edema. No clubbing or cyanosis. Peripheral pulses intact and strong. - Labs CBC & Chem 7: 03/23/18 06:54 03/23/18 06:54 Labs: Abnormal Lab Results - Last 24 Hours (Table) 03/22/18 03/22/18 03/23/18 Range/Units 08:39 08:39 06:54 WBC 3.7 L (3.8-10.6) k/uL Hgb 8.2 L 7.6 L (11.4-16.0) gm/dL Hct 29.1 L 26.6 L (34.0-46.0) % MCV 65.6 L 64.0 L (80.0-100.0) fL MCH 18.3 L 18.3 L (25.0-35.0) pg MCHC 28.0 L 28.6 L (31.0-37.0) g/dL RDW 17.6 H 17.5 H (11.5-15.5) % Lymphocytes # 0.7 L (1.0-4.8) k/uL Glucose (74-99) mg/dL HDL Cholesterol 67 H (40-60) mg/dL 03/23/18 Range/Units 06:54 WBC (3.8-10.6) k/uL Hgb (11.4-16.0) gm/dL Hct (34.0-46.0) % MCV (80.0-100.0) fL MCH (25.0-35.0) pg MCHC (31.0-37.0) g/dL RDW (11.5-15.5) % Lymphocytes # (1.0-4.8) k/uL Glucose 101 H (74-99) mg/dL HDL Cholesterol (40-60) mg/dL Assessment and Plan Assessment: ASSESSMENT 1. Chest pain, atypical. An acute coronary event has been ruled out. Chest pain most likely secondary to anemia. 2. Anemia, unknown etiology. Pt denies history of anemia and denies any bleeding. 3. Left knee pain 4. History of hypertension, not currently on medical therapy. 5. Morbid obesity PLAN Ongoing management of anemia per primary medical team. Follow-up with Dr. Biggs in 2-3 weeks for outpatient stress testing. Nurse Practitioner note has been reviewed, I agree with a documented findings and plan of care. Patient was seen and examined.
--- NOTE | 2018-03-23 10:17 | P.PN ---
Subjective Progress Note Date: 03/23/18 Principal diagnosis: Left knee suprapatellar bursitis Patient is a pleasant 43-year-old female seen at bedside this morning. We saw her yesterday in consultation for left knee pain and what appeared to be aseptic suprapatellar bursitis. She has been given oral corticosteroids and ice has been applied. She is significantly improved today. She has no new complaints. She has numbness, tingling, calf pain, fever, chills, chest pain or shortness breath currently Objective - Vital Signs Vital signs: Vital Signs Temp 98.4 F 03/23/18 07:20 Pulse 97 03/23/18 08:00 Resp 18 03/23/18 08:00 BP 156/78 03/23/18 07:20 Pulse Ox 93 L 03/23/18 07:20 Intake & Output 03/22/18 03/23/18 03/23/18 18:59 06:59 18:59 Intake Total 860 120 Balance 860 120 Intake: Oral 860 120 Other: Voiding Method Toilet # Voids 2 1 - Exam Inspection of the left knee shows no erythema or ecchymoses. There is minimal to no swelling at the area of the suprapatellar bursa. She iis not tender at the area of the suprapatellar bursa. It is not hot to touch. There is no bony deformity. There is no joint effusion. Patellar tracking is normal. She has negative patellar apprehension. She has minimal pain with forced flexion to 90 . Carol is negative. MCL and LCL are intact. Calf is soft and nontender. 2 + dorsalis pedis pulse and less than 2 second capillary refill is present. - Constitutional General appearance: Present: no acute distress - Psychiatric Psychiatric: Present: A&O x's 3, appropriate affect, intact judgment & insight - Labs CBC & Chem 7: 03/23/18 06:54 03/23/18 06:54 Labs: Abnormal Lab Results - Last 24 Hours (Table) 03/22/18 03/22/18 03/23/18 Range/Units 08:39 08:39 06:54 WBC 3.7 L (3.8-10.6) k/uL Hgb 8.2 L 7.6 L (11.4-16.0) gm/dL Hct 29.1 L 26.6 L (34.0-46.0) % MCV 65.6 L 64.0 L (80.0-100.0) fL MCH 18.3 L 18.3 L (25.0-35.0) pg MCHC 28.0 L 28.6 L (31.0-37.0) g/dL RDW 17.6 H 17.5 H (11.5-15.5) % Lymphocytes # 0.7 L (1.0-4.8) k/uL Glucose (74-99) mg/dL HDL Cholesterol 67 H (40-60) mg/dL 03/23/18 Range/Units 06:54 WBC (3.8-10.6) k/uL Hgb (11.4-16.0) gm/dL Hct (34.0-46.0) % MCV (80.0-100.0) fL MCH (25.0-35.0) pg MCHC (31.0-37.0) g/dL RDW (11.5-15.5) % Lymphocytes # (1.0-4.8) k/uL Glucose 101 H (74-99) mg/dL HDL Cholesterol (40-60) mg/dL Assessment and Plan (1) Left knee pain Narrative/Plan: She is much improved. I recommended applying her knee immobilizer and maintaining until symptoms completely resolved. Also recommended continuing applying ice pack 10-15 minutes 2-3 times a day. She may finish a 6 day course of oral steroids. She can be discharged from ortho standpoint and f/u in office if has continued or recurring symptoms. . Current Visit: Yes Status: Acute Code(s): M25.562 - PAIN IN LEFT KNEE SNOMED Code(s): 75598289 Time with Patient: Less than 30
[2018-03-23 11:44] VITALS: BP 143/72; PULSE 101; TEMP 97.3
[2018-03-23 17:14] LABS: Iron Saturation 2.27 (12.00-45.00)
--- NOTE | 2018-03-23 18:56 | DS ---
DISCHARGE SUMMARY FINAL DIAGNOSIS: 1. Atypical chest pain. 2. Myocardial infarction ruled out. 3. Anemia, most likely iron deficiency status post Wendy-en-Y gastric bypass surgery done. 4. Left knee pain and swelling. 5. History of hypertension. 6. Morbid obesity. 7. Hearing disorder. DISCHARGE DISPOSITION: The patient is being discharged in stable condition with guarded prognosis. HISTORY OF PRESENT ILLNESS: This 43-year-old woman with a past medical history of multiple medical problems was admitted with multiple complex medical issues as mentioned earlier. The patient had myocardial infarction ruled out. Cardiology saw the patient. The patient followed by Dr. Oliva in the outpatient setting. Hemoglobin is found to be 7 and subsequently 7.6 at this time. I recommend the patient to continue with iron tablets, multivitamin tablets and also recommend close followup with surgery. On exam, vitals are stable. Cardio: S1, S2. Abdomen soft. Central nervous system: No focal deficits. Labs are noted. DISCHARGE ADVICE AND MEDICATIONS: 1. Diet is cardiac diet. 2. Activity limited until follow up. 3. Followup with 4. Iron sulfate 320 daily. 5. Medrol Dosepak as directed. 6. Protonix 40 mg daily. 7. Multivitamins one p.o. daily. 8. Vitamin C Biotin 1 p.o. daily. 9. Multivitamins 1 p.o. daily. Followup plans as below: Follow up with Dr. Oliva in 2-3 days, follow up with Dr. Callahan as recommended for evaluation including endoscopy. Follow up with Dr. Biggs cardiology. Follow up with Dr. Bond orthopedic surgery regarding the left knee. MMODL / IJN: [id number] / MTDD
== END 2018-03-23 14:35 | disposition home or self-care (01) ==
LOC: EC 23:48 → 3OBS 03-22 04:57
PROVIDERS: ADMIT Hospitalist; ATTEND Hospitalist
DX: R07.89 Other chest pain (principal); D64.9 Anemia, unspecified; R06.02 Shortness of breath; R42 Dizziness and giddiness; R23.2 Flushing; R53.83 Other fatigue; R11.2 Nausea with vomiting, unspecified; T40.2X5A Adverse effect of other opioids, initial encounter; M25.562 Pain in left knee; M25.462 Effusion, left knee; Z98.84 Bariatric surgery status; Z68.41 Body mass index [BMI] 40.0-44.9, adult; E66.01 Morbid (severe) obesity due to excess calories; H91.90 Unspecified hearing loss, unspecified ear; Z97.4 Presence of external hearing-aid; Z90.49 Acquired absence of other specified parts of digestive tract; Z88.5 Allergy status to narcotic agent; Z87.891 Personal history of nicotine dependence; Z86.79 Personal history of other diseases of the circulatory system; Z83.3 Family history of diabetes mellitus
CPT/HCPCS: 99284 ×2; 96374 ×2; 96375 ×3; 96372 ×3; 96376; 36415; 93005; 86900; 86901; 80061; 80053; 80048; 82550; 82553; 83540; 83550; 83735; 84550; 84484; 85025 ×2; 85027; 85610; 85730; 86850; 71046; G0378 ×2; J2060; J2270; J0360; J2405; J1885; J7509 ×2

== ENCOUNTER 2019-07-28 08:22 | Day surgery (SDC) | payer BC ==
[2019-07-27 11:33] VITALS: BMI 43.2
[~2019-07-28 08:22] MED LIST: LACTATED RINGERS 1,000 ML IV SCH; LIDOCAINE 1% 20 ML VIAL (10MG/ML) FOR IV START INTRADERMA PRN
[2019-07-28 08:49] VITALS: TEMP 97.2
[2019-07-28] MEDS ORDERED: MIDAZOLAM 2 MG/2 ML VIAL ONE (09:28)
[2019-07-28] MEDS ORDERED: PROPOFOL 10 MG/ML 20 ML VIAL IV ONE (09:28)
[2019-07-28] MEDS ORDERED: fentaNYL (PF) 50 MCG/ML 2 ML AMP ONE (09:28)
[2019-07-28] MEDS ORDERED: LIDOCAINE 1% INJ 10MG/ML (20 ML MDV) ONE (09:28)
--- NOTE | 2019-07-28 10:22 | P.PCN ---
Date of Procedure: 07/28/19 Description of Procedure: Brief history: Patient is a pleasant scheduled for an elective upper endoscopy as well as colonoscopy as a part of evaluation of anemia. Patient denies any family history of colon cancer, blood per rectum or change in bowel habits. She reports she has been anemic in the past but that this has been worse recently. Currently she is receiving iron infusions. Procedure performed: Esophagogastroduodenoscopy with biopsy Colonoscopy Estimated blood loss: Minimal. Preoperative diagnosis: Iron deficiency anemia, anemia Anesthesia: [facility] Procedure: After informed consent was obtained from the patient was brought into the endoscopy unit and IV sedation was administered by anesthesia under continuous monitoring. Initially upper endoscopy was done. The Olympus GF 190 video endoscope was inserted inserted into the mouth and esophagus intubated without any difficulty and was gradually advanced into the stomach. The patient had anatomy consistent with prior gastric surgery which she described as a Wendy-en-Y. Intubation of the small bowel was performed and no discrete ulcers or pathology to explain. There was some irritation at the anastomotic site however again no discrete ulcer was seen. Biopsies of the small bowel and the gastric remnant were biopsied. The scope was then withdrawn into the esophagus. The GE junction was located at 40 cm to the incisors. It appeared regular with no erythema erosions or ulcerations. Rest of the esophagus appeared normal. Patient tolerated the procedure well. At this time the patient continued to remain sedation. Initial digital rectal examination was normal. Olympus CF 190 video colonoscope was then inserted into the rectum and gradually advanced to the cecum without any difficulty, the terminal ileum was intubated and appeared normal. Careful examination was performed as the scope was gradually being withdrawn. The prep was excellent. The cecum, ascending colon, transverse colon, descending colon, sigmoid colon and rectum appeared normal. Retroflexion was performed in the rectum and no lesions were noted, mild internal hemorrhoids were. Patient tolerated the procedure well. Impression: 1. Anatomy consistent with prior gastric surgery. No discrete ulcers, masses, sources of GI bleeding were noted. Biopsies of the small bowel and stomach were taken. 2. Normal-appearing colon from rectum to cecum. Recommendations: Findings of this examination were discussed with the patient as well as her . Okay to resume diet. Continue Iron supplementation. Okay to resume medications. Would recommend repeat colonoscopy in 10 years or sooner if signs or symptoms which warrant further evaluation developed.
[2019-07-28 10:34] VITALS: PULSE 76
[2019-07-28 10:48] VITALS: BP 125/74; RESP 14
== END 2019-07-28 11:02 | disposition home or self-care (01) ==
LOC: ORWHC2ENDO 08:22
PROVIDERS: ATTEND Internal Medicine
DX: K29.50 Unspecified chronic gastritis without bleeding (principal); K64.8 Other hemorrhoids; D50.9 Iron deficiency anemia, unspecified; I10 Essential (primary) hypertension; H91.90 Unspecified hearing loss, unspecified ear; Z98.84 Bariatric surgery status; Z88.8 Allergy status to other drugs, medicaments and biological substances; Z88.5 Allergy status to narcotic agent; Z87.891 Personal history of nicotine dependence
CPT/HCPCS: 45378; 43239; 81025; 88305; J2250; J2001; J3010; J2704

== ENCOUNTER → 2021-08-19 | Outpatient (CLI) | payer BC ==
--- NOTE | 2021-08-21 07:55 | MM ---
Reason for exam: screening (asymptomatic). Last mammogram was performed 11 years and 3 months ago. History: Took hormonal contraceptives for 1 year. Physical Findings: A clinical breast exam by your physician is recommended on an annual basis and results should be correlated with mammographic findings. MG Screening Mammo w CAD Bilateral CC and MLO view(s) were taken. No prior studies available for comparison. There are scattered fibroglandular densities. Right lateral posterior asymmetric density. Left superior and inferior asymmetric densities. ASSESSMENT: Incomplete: need additional imaging evaluation, BI-RAD 0 RECOMMENDATION: Special view mammogram of both breasts. (3D) If lesion persists on supplemental views, image directed ultrasound is recommended. [facility] will attempt to contact patient to return for supplemental views and ultrasound if indicated.
== END | disposition home or self-care (01) ==
LOC: RADMAMWWP 13:25
PROVIDERS: ATTEND Family Medicine
DX: Z12.31 Encounter for screening mammogram for malignant neoplasm of breast (principal)
CPT/HCPCS: 77067

== ENCOUNTER → 2021-08-22 | Outpatient (CLI) | payer BC ==
--- NOTE | 2021-08-22 09:32 | MM ---
Reason for exam: additional evaluation requested from abnormal screening. Last mammogram was performed less than 1 month ago. History: Took hormonal contraceptives for 1 year. Physical Findings: Nurse did not find any significant physical abnormalities on exam. MG Work Up Mamm w CAD BILAT Bilateral spot compression CC, spot compression MLO, and ML view(s) were taken. XCCL view(s) were taken of the right breast. Prior study comparison: August 19, 2021, bilateral MG screening mammo w CAD. June 03, 2010, bilateral diagnostic digital mammog. There are scattered fibroglandular densities. The bilateral asymmetric densities disperse on additional views. These results were verbally communicated with the patient and result sheet given to the patient on 08/22/21. ASSESSMENT: Negative, BI-RAD 1 RECOMMENDATION: Return to routine screening mammogram schedule for both breasts.
== END | disposition home or self-care (01) ==
LOC: RADMAMWWP 07:53
PROVIDERS: ATTEND Family Medicine
DX: R92.2 Inconclusive mammogram (principal)
CPT/HCPCS: 77066

== ENCOUNTER → 2024-07-12 | Outpatient (CLI) | payer BC ==
[2024-07-12 10:14] LABS: Basophils # (A) 0.03 X 10*3/uL (0.00-0.10); Basophils % (A) 0.8 %; Eosinophils # (A) 0.12 X 10*3/uL (0.04-0.35); Eosinophils % (A) 3.3 %; HGB 13.2 g/dL (12.0-15.0); Lymphocytes # (A) 1.28 X 10*3/uL (0.90-5.00); Lymphocytes % (A) 34.8 %; MCH 28.4 pg (27.0-32.0); MCV 86.2 FL (80.0-97.0); Mean Platelet Volume 10.5 FL (9.5-12.2); Monocytes % (A) 5.4 %; NRBC Per 100 WBC 0 X 10*3/uL (0.00-0.01); Neutrophils # (A) 2.03 X 10*3/uL (1.80-7.70); Neutrophils % (A) 55.2 %; Platelet Count 191 X 10*3/uL (140-440); RBC 4.64 X 10*6/uL (4.10-5.20); RDW 12.9 % (11.5-14.5); WBC 3.68 X 10*3/uL (4.50-10.00)
[2024-07-12 10:30] LABS: ALT 16 U/L (8-44); AST 15 U/L (13-35); Albumin/Globulin Ratio 1.74 Ratio (1.60-3.17); Alkaline Phosphatase 89 U/L (41-126); Blood Urea Nitrogen 9.8 mg/dL (9.0-27.0); Calcium 8.7 mg/dL (8.7-10.3); Carbon Dioxide 27.8 mmol/L (21.6-31.8); Chloride 104 mmol/L (96-109); Chol/HDL Ratio 2.98 Ratio; Globulin 2.3 g/dL (1.6-3.3); Glucose 115 mg/dL (70-110); LDL Cholesterol,Calculated 100.7 mg/dL (0.0-131.0); Potassium 3.8 mmol/L (3.5-5.5); Sodium 140 mmol/L (135-145); Total Bilirubin 0.4 mg/dL (0.3-1.2); Total Protein 6.3 g/dL (6.2-8.2)
== END | disposition home or self-care (01) ==
LOC: LABWHC1 08:06
PROVIDERS: ATTEND Family Medicine
DX: Z13.220 Encounter for screening for lipoid disorders (principal); Z13.228 Encounter for screening for other metabolic disorders; Z13.89 Encounter for screening for other disorder
CPT/HCPCS: 36415; 80053; 80061; 84443; 85025